=== PATIENT | female | born 1970 | race Caucasian/White ===

== ENCOUNTER 2022-09-05 07:58 | Day surgery (SDC) | payer MEDICAID ==
[2022-09-04 12:30] LABS: COVID AG,FIA SOURCE NASAL SWAB
[~2022-09-05] VITALS: Ht 171.4 cm; Wt 79.5 kg
[~2022-09-05 07:58] MED LIST: LISI-893 PO; OMEP20 PO; SODIUM CHLORIDE 0.9% 1,000 ML IV ONE
[2022-09-05] MEDS ORDERED: PROPOFOL 1% 20 ML VIAL IVP ONE (12:00)
[2022-09-05] MEDS ORDERED: LIDOCAINE/PF 2% 5 ML VIAL IM ONE (12:00)
[2022-09-05] MEDS ORDERED: OXYGEN THERAPY IH SCH (20:00)
== END 2022-09-05 11:45 | disposition home or self-care (01) ==
LOC: SURGERY 07:58
PROVIDERS: ATTEND Specialist
DX: D50.9 Iron deficiency anemia, unspecified (principal); I10 Essential (primary) hypertension; Z79.899 Other long term (current) drug therapy; K21.9 Gastro-esophageal reflux disease without esophagitis; Z80.8 Family history of malignant neoplasm of other organs or systems; Z83.2 Family history of diseases of the blood and blood-forming organs and certain disorders involving the immune mechanism; Z20.822 Contact with and (suspected) exposure to COVID-19; Z98.890 Other specified postprocedural states
CPT/HCPCS: 87426; 45378; C9803; J2704; J3490

== ENCOUNTER 2022-10-03 08:18 | Day surgery (SDC) | payer MEDICAID ==
[~2022-10-03 08:18] MED LIST changes: +ASPI-1444 PO; +EPIN0.3P3 IM; +SODIUM CHLORIDE 0.9% 1,000 ML ONE
[2022-10-03 10:03] LABS: COVID AG,FIA SOURCE NASAL SWAB
[2022-10-03] MEDS ORDERED: LIDOCAINE/PF 2% 5 ML VIAL IM ONE (12:00)
[2022-10-03] MEDS ORDERED: PROPOFOL 1% 20 ML VIAL IVP ONE (12:00)
[2022-10-03] MEDS ORDERED: OXYGEN THERAPY IH SCH (20:00)
== END 2022-10-03 12:15 | disposition home or self-care (01) ==
LOC: SURGERY 08:18 → EDUNIT# 10:00 → SURGERY 12:15
PROVIDERS: ATTEND Specialist
DX: D50.9 Iron deficiency anemia, unspecified (principal); K29.50 Unspecified chronic gastritis without bleeding; K21.9 Gastro-esophageal reflux disease without esophagitis; E66.3 Overweight; I10 Essential (primary) hypertension; Z79.899 Other long term (current) drug therapy; Z98.890 Other specified postprocedural states
CPT/HCPCS: 43239; 87426; 84703; 93005; C1769; J2704; J3490; J7030; C9803

== ENCOUNTER 2022-11-07 09:33 | Day surgery (SDC) | payer MEDICAID ==
[~2022-11-07 09:33] MED LIST changes: -SODIUM CHLORIDE 0.9% 1,000 ML ONE
[2022-11-07] MEDS ORDERED: PROPOFOL 1% 20 ML VIAL IVP ONE (09:34)
[2022-11-07] MEDS ORDERED: LIDOCAINE/PF 2% 5 ML SYRINGE IVP ONE (09:34)
[2022-11-07 10:32] LABS: COVID AG,FIA SOURCE NASOPHARYNGEAL
[2022-11-07] MEDS ORDERED: OXYGEN THERAPY IH SCH (11:00)
== END 2022-11-07 12:10 | disposition home or self-care (01) ==
LOC: SURGERY 09:33
PROVIDERS: ATTEND Specialist
DX: D50.9 Iron deficiency anemia, unspecified (principal); K21.9 Gastro-esophageal reflux disease without esophagitis; I10 Essential (primary) hypertension; Z98.890 Other specified postprocedural states; Z79.899 Other long term (current) drug therapy
CPT/HCPCS: 45378; 87426; J2704; J3490; C9803